=== PATIENT | female | born 1925 | race Asian ===

== ENCOUNTER 2016-12-14 18:07 | Emergency (ER) | payer SELFPAY ==
[~2016-12-14] VITALS: Ht 142.2 cm; Wt 54.5 kg
[2016-12-14 18:34] VITALS: BP 146/90
[2016-12-14] MEDS ORDERED: TELM40 PO (18:48)
[2016-12-14] MEDS ORDERED: ALLO100T PO (18:48)
[2016-12-14] MEDS ORDERED: NIFE10 PO (18:48)
[2016-12-14] MEDS ORDERED: ASPI-556 PO (18:48)
[2016-12-14] MEDS ORDERED: DONE5TAB PO (18:48)
[2016-12-14] MEDS ORDERED: NIFE30TA5 PO (18:51)
== END 2016-12-14 19:14 | disposition left against medical advice (07) ==
LOC: EMS 18:10
DX: F32.9 Major depressive disorder, single episode, unspecified (principal); E86.0 Dehydration; I10 Essential (primary) hypertension; Z53.21 Procedure and treatment not carried out due to patient leaving prior to being seen by health care provider